=== PATIENT | female | born 1930 | race Caucasian/White ===

== ENCOUNTER 2017-08-31 12:02 | Inpatient (IN) | payer MEDICARE, BC ==
[~2017-08-31] VITALS: Ht 154.9 cm; Wt 79.9 kg
[2017-08-31] MEDS ORDERED: CALCIUM +D & M1 EACH PO (12:58)
[2017-08-31] MEDS ORDERED: ZYRTEC ALLERGY10 MG PO (12:58)
[2017-08-31] MEDS ORDERED: MASON NATURAL2000 IU PO (12:59)
[2017-08-31] MEDS ORDERED: CYPROHEPTADINE H4 M1 PO (12:59)
[2017-08-31] MEDS ORDERED: FLAX OIL1000 M1 PO (13:00)
[2017-08-31] MEDS ORDERED: FUROSEMIDE40 MG PO (13:00)
[2017-08-31] MEDS ORDERED: HALDOL .5M0.5 MG/TAB PO (13:01)
[2017-08-31] MEDS ORDERED: HYDROXYZINE HCL25 M1 PO (13:01)
[2017-08-31] MEDS ORDERED: IBU400 MG PO (13:03)
[2017-08-31] MEDS ORDERED: TOPROL XL 25MG25 MG PO (13:03)
[2017-08-31] MEDS ORDERED: MELATONIN1 MG PO (13:03)
[2017-08-31] MEDS ORDERED: PRILOSEC OTC20 MG PO (13:03)
[2017-08-31] MEDS ORDERED: POTASSIUM CHLO10 ME5 PO (13:04)
[2017-08-31] MEDS ORDERED: DITROPAN 5MG TAB5 MG PO (13:04)
[2017-08-31] MEDS ORDERED: PREDNISONE1 MG PO (13:06)
[2017-08-31] MEDS ORDERED: BENADRYL 5050 MG/CAP PO (13:06)
[2017-08-31] MEDS ORDERED: DHEA25 M3 PO (13:07)
[2017-08-31] MEDS ORDERED: ZANTAC150 M1 PO (13:07)
[2017-08-31 15:35] VITALS: BP 222/95
[2017-08-31 19:17] VITALS: BP 174/128
[2017-08-31 20:07] VITALS: BP 178/84
[2017-08-31 22:39] VITALS: BP 173/69
[2017-09-01 02:47] VITALS: BP 152/65
[2017-09-01] MEDS ORDERED: TOPROL XL 50MG50 MG PO (04:55)
[2017-09-01 06:24] LABS: EOS % 0.4 % (1.0-5.0); HEMATOCRIT 34.5 % (37.0-47.0); HEMOGLOBIN 11.6 g/dL (12.5-16.0); LYMPH# 2.6 (1.50-4.00); MEAN CELL VOLUME 86 fl (78-100); MEAN CORPUSCULAR HEMOGLOBIN 29 pg (27-31); MEAN CORPUSCULAR HGB CONC 34 g/dL (33-37); MEAN PLATELET VOLUME 9.7 fl (7.4-10.4); MONO # 0.8 (0.20-0.80); NEU # 4.5 (1.40-6.50); PLATELET COUNT 171 K/mm3 (130-400); RED CELL DISTRIBUTION WIDTH 14.1 % (11.5-14.5)
[2017-09-01 06:29] VITALS: BP 164/76
[2017-09-01 06:47] LABS: ALBUMIN 3.3 g/dL (3.5-5.0); CALCIUM 8.2 mg/dL (8.4-10.2); POTASSIUM 3.4 mmol/L (3.6-5.0); TOTAL BILIRUBIN 0.6 mg/dL (0.2-1.3); TOTAL PROTEIN 6.5 g/dL (6.3-8.2)
[2017-09-01 11:16] VITALS: BP 150/66
[2017-09-01 15:21] VITALS: BP 180/93
[2017-09-01 18:55] VITALS: BP 189/79
[2017-09-01 22:47] VITALS: BP 162/77
[2017-09-02 03:00] VITALS: BP 166/81
[2017-09-02 06:22] VITALS: BP 158/71
[2017-09-02 11:25] VITALS: BP 153/96
[2017-09-02 14:41] VITALS: BP 161/64
[2017-09-02] MEDS ORDERED: LEVAQUIN 750MG750 M1 PO (15:16)
[2017-09-02] MEDS ORDERED: FLAGYL500 M1 PO (15:18)
[2017-09-02] MEDS ORDERED: NORCO 325 MG-51 TA1 PO (15:19)
== END 2017-09-02 16:08 | disposition home or self-care (01) | DRG 392 ==
LOC: MED/SURG 12:02
PROVIDERS: ADMIT Internal Medicine
DX: K57.32 Diverticulitis of large intestine without perforation or abscess without bleeding (principal); I10 Essential (primary) hypertension; G47.00 Insomnia, unspecified; F03.90 Unspecified dementia, unspecified severity, without behavioral disturbance, psychotic disturbance, mood disturbance, and anxiety; R44.1 Visual hallucinations; N32.89 Other specified disorders of bladder; T78.1XXA Other adverse food reactions, not elsewhere classified, initial encounter; Z96.651 Presence of right artificial knee joint
CPT/HCPCS: A6531; J1200; J1885; J1956; J2930; J3490; J7512; Q0177